=== PATIENT | male | born 1930 | race American Indian/Alaskan Native ===

== ENCOUNTER 2016-03-29 15:52 | Emergency (ER) | payer MEDICARE ==
--- NOTE | 2016-03-29 17:06 | Emergency Department Report ---
Stated Complaint: CLOT AT CATH SITE Time Seen by Provider: 03/29/16 16:55 - HPI History of Present Illness: Patient here reports that he had dialysis PermCath placed in his right groin today. He said they sent him to the emergency room because they saw clot at the insertion site. They also gave him I will Alvarez to be started on. Patient is complaining or right knee pain and swelling since this morning. Denies any fever or chills. Denies any shortness of breath or chest pain. Pain to right knee is 5 out of 10. Patient had dialysis today. - ROS Review of Systems: All systems are negative unless stated in HPI above. - Exam Vital Signs: Vital Signs 03/29/16 16:48 Temperature 98.6 F Pulse Rate 96 H Respiratory 17 Rate Blood Pressure 122/56 O2 Sat by Pulse 99 Oximetry Physical Exam: All systems are negative unless stated in HPI above. MSE screening note: Focused history and physical exam performed. Due to findings the following was ordered: See MDM ED Medical Decision Making - Medical Decision Making Medical decision making: Patient seen by provider in triage area. Appropriate protocol activated and patient to main ED to be seen by physician. ED Disposition for MSE Condition: Stable
[2016-03-29 18:34] LABS: Basophils % (Auto) 1.2 % (0.0-1.8); Eosinophils % (Auto) 1.1 % (0.0-4.3); Hematocrit 37.2 % (35.5-45.6); Hemoglobin 11.6 gm/dl (11.8-15.2); Mean Corpuscular HGB Conc 31 % (32-34); Mean Corpuscular Hemoglobin 31 pg (28-32); Mean Corpuscular Volume 100 fl (84-94); Platelet Count 396 K/mm3 (140-440); Red Blood Count 3.73 M/mm3 (3.65-5.03); White Blood Count 11.8 K/mm3 (4.5-11.0)
[2016-03-29 18:36] LABS: Red Cell Distribution Width 22.1 % (13.2-15.2)
[2016-03-29 18:43] LABS: INR 1.03 (0.87-1.13)
[2016-03-29 18:44] LABS: Partial Thromboplastin Time 33.9 Sec. (24.2-36.6)
[2016-03-29 19:00] LABS: Albumin 3.8 g/dL (3.9-5); BUN/Creatinine Ratio 3.27; Bilirubin,Total 0.4 mg/dL (0.1-1.2); Calcium 8.3 mg/dL (8.4-10.2); Chloride 95.6 mmol/L (98-107); Total Protein 7.7 g/dL (6.3-8.2)
[2016-03-29] MEDS ORDERED: CLEOCIN PO ONE (23:35)
[2016-03-29] MEDS ORDERED: DELTASONE PO ONE (23:35)
--- NOTE | 2016-03-29 23:43 | Emergency Department Report ---
HPI - General Chief Complaint: Extremity Injury, Lower Time Seen by Provider: 03/29/16 16:55 - HPI HPI: The patient is a 85-year-old male with a history of end-stage renal disease, who presents for evaluation of right knee pain. The patient reports one night of mild pain to the right knee, aching quality, exacerbated with movement of the right knee, and improved with rest. He reports associated swelling of the right knee as well. He shares that he has a history of gout. He denies fever, chills, night sweats, ill feeling, parasthesia, motor deficit, trauma to the right knee, knee pain with bearing weight. He also shares that he was instructed to present to the ED by the MOBILITY MANAGER at his dialysis clinic for evaluation of blood clot, despite being able to receive dialysis earlier today. ED Past Medical Hx - Past Medical History Hx Hypertension: Yes (CHF EF 10% from echo 12/30) Hx Congestive Heart Failure: Yes Hx Renal Disease: Yes (CKD) Additional medical history: gout - Surgical History Additional Surgical History: hernia repair - Social History Smoking Status: Never Smoker Substance Use Type: Alcohol - Medications Home Medications: Home Medications Medication Instructions Recorded Confirmed Last Taken Type Aspirin [Aspirin BABY CHEW TAB] 81 mg PO QDAY 12/26/12 12/26/12 12/25/12 09:00 History Cholecalciferol (Vitamin D3) 2,000 unit PO QDAY 12/26/12 12/26/12 12/25/12 09: 00 History [Vitamin D3] Ferrous Sulfate [Feosol] 325 mg PO QDAY 12/26/12 12/26/12 12/25/12 09:00 History Megestrol Acetate [Megace Es] 5 ml PO QDAY 12/26/12 12/26/12 12/24/12 08:00 History Tamsulosin [Flomax] 0.4 mg PO QDAY 12/26/12 12/26/12 12/25/12 09:00 History Carvedilol [Coreg] 3.125 mg PO BID 30 Days 01/05/13 Unknown Rx Digoxin [Lanoxin] 0.125 mg PO QOD #20 tablet 01/05/13 Unknown Rx Prednisone [predniSONE 10 mg 10 mg PO .TAPER #1 tab.ds.pk 03/30/16 Unknown Rx (6-Day Pack, 21 Tabs)] ED Review of Systems ROS: Stated complaint: CLOT AT CATH SITE Other details as noted in HPI Constitutional: denies: fever ENT: denies: throat or neck pain Respiratory: denies: cough, shortness of breath Cardiovascular: denies: chest pain Endocrine: denies unexplained weight loss or gain Gastrointestinal: denies: abdominal pain, nausea Genitourinary: denies: dysuria Musculoskeletal: right leg pain Skin: denies: rash Neurological: denies: headache Hematological/Lymphatic: denies: easy bleeding or easy bruising Psych: denies sadness or hopelessness Physical Exam - Physical Exam Vital Signs: Vital Signs 03/29/16 03/29/16 03/29/16 16:48 23:06 23:07 Temperature 98.6 F Pulse Rate 96 H Respiratory 17 Rate Blood Pressure 122/56 O2 Sat by Pulse 99 96 97 Oximetry 03/29/16 03/29/16 03/29/16 23:09 23:11 23:13 Temperature Pulse Rate 81 79 81 Respiratory 16 15 15 Rate Blood Pressure O2 Sat by Pulse 96 96 97 Oximetry 03/29/16 03/29/16 03/29/16 23:15 23:17 23:18 Temperature Pulse Rate 80 84 83 Respiratory 13 14 16 Rate Blood Pressure 136/72 O2 Sat by Pulse 96 96 96 Oximetry 03/29/16 03/29/16 03/29/16 23:19 23:21 23:23 Temperature Pulse Rate 82 79 79 Respiratory 21 18 14 Rate Blood Pressure 136/72 136/72 136/72 O2 Sat by Pulse 96 95 97 Oximetry 03/29/16 03/29/16 23:25 23:27 Temperature Pulse Rate 87 79 Respiratory 21 17 Rate Blood Pressure 136/72 136/72 O2 Sat by Pulse 98 94 Oximetry Physical Exam: General: well-nourished, well-developed Head: Normocephalic, atraumatic Eyes: normal sclera Respiratory: Breath sounds equal bilaterally, no wheezing, rales, or rhonchi Cardio: S1 and S2 present, no murmurs, rubs, gallops, capillary refill is brisk Abdomen: Normoactive bowel sounds, soft abdomen, no tenderness Musc: mild redness and swelling to the right knee present, no fluctuance or warmth to the knee or surrounding knee, full passive and active range of motion intact, there is no pain with passive range of motion or active range of motion to the right knee, there is no pain with weightbearing on the right knee, quadriceps extensor tendon function intact, minimal tenderness to palpation present to the rt knee, Paula's and posterior drawer signs are negative, no LCL or MCL laxity, rt eg compartments are soft and pliable, no ecchymosis or swelling in the right leg, no signs of DVT or compartment syndrome, sensation and motor function intact, distal pulses intact. Skin: No rash Neuro: no facial drooping, normal speech Psych: Normal affect ED Course Vital Signs 03/29/16 03/29/16 03/29/16 16:48 23:06 23:07 Temperature 98.6 F Pulse Rate 96 H Respiratory 17 Rate Blood Pressure 122/56 O2 Sat by Pulse 99 96 97 Oximetry 03/29/16 03/29/16 03/29/16 23:09 23:11 23:13 Temperature Pulse Rate 81 79 81 Respiratory 16 15 15 Rate Blood Pressure O2 Sat by Pulse 96 96 97 Oximetry 03/29/16 03/29/16 03/29/16 23:15 23:17 23:18 Temperature Pulse Rate 80 84 83 Respiratory 13 14 16 Rate Blood Pressure 136/72 O2 Sat by Pulse 96 96 96 Oximetry 03/29/16 03/29/16 03/29/16 23:19 23:21 23:23 Temperature Pulse Rate 82 79 79 Respiratory 21 18 14 Rate Blood Pressure 136/72 136/72 136/72 O2 Sat by Pulse 96 95 97 Oximetry 03/29/16 03/29/16 23:25 23:27 Temperature Pulse Rate 87 79 Respiratory 21 17 Rate Blood Pressure 136/72 136/72 O2 Sat by Pulse 98 94 Oximetry ED Medical Decision Making - Lab Data Result diagrams: 03/29/16 18:18 03/29/16 18:18 - Medical Decision Making The patient was seen and examined by myself. The patient is placed on a conveyor monitor and continuous pulse ox. On initial evaluation, the patient was found to be in no distress. Evaluation orders were placed. Exam findings are consistent with acute gout arthritis of the right knee. The patient is given a tablet of prednisone for treatment of gout. As the patient is afebrile, with minimal right knee pain, and no pain with range of motion the right knee or weightbearing, evaluation findings are not concerning for septic arthritis. Ultrasound of the right lower extremity is negative for DVT. The patient was reevaluated and reported that their symptoms were markedly improved. The patient is stable for discharge with outpatient follow-up. The patient is given follow-up and return instructions. The patient expressed understanding and agreed with the plan. The patient is discharged in stable condition. Critical care attestation.: If time is entered above; I have spent that time in minutes in the direct care of this critically ill patient, excluding procedure time. ED Disposition Clinical Impression: ESRD (end stage renal disease) Gout of right knee Qualifiers: Gout etiology: due to renal impairment Chronicity: acute Qualified Code(s): M10.361 - Gout due to renal impairment, right knee Disposition: DISCHARGED TO HOME OR SELFCARE Is pt being admited?: No Does the pt Need Aspirin: No Condition: Stable Instructions: Chronic Kidney Disease (ED), Acute Gouty Arthritis (ED) Prescriptions: Prednisone [predniSONE 10 mg (6-Day Pack, 21 Tabs)] 10 mg PO .TAPER #1 tab.ds.pk Referrals: SANTIAGO BASILIO MD [Primary Care Provider] - 3-5 Days Time of Disposition: 23:38
[2016-03-30 00:44] VITALS: BP 131/53
--- NOTE | 2016-04-01 11:34 | Vascular Lab Report ---
Right Lower Extremity Venous Duplex Study: Reason for Exam: Right groin permacath. Comments on the Right: All veins visualized are freely compressible without evidence of internal echogenicity. Flow is spontaneous and phasic throughout. No evidence of acute or chronic thrombus is seen in any of the vessels visualized. The common femoral vein is compressible over the permacath. Comments on the Left: A limited duplex study was done of the proximal veins of the left lower extremity. All veins visualized are freely compressible without evidence of internal echogenicity. Flow is spontaneous and phasic throughout. No evidence of acute or chronic thrombus is seen in any of the vessels visualized. Impression: No evidence of acute or chronic deep venous thrombosis in the right lower extremity.
== END 2016-03-30 01:00 | disposition home or self-care (01) ==
LOC: ED 15:52
DX: M10.361 Gout due to renal impairment, right knee (principal); I12.0 Hypertensive chronic kidney disease with stage 5 chronic kidney disease or end stage renal disease; N18.6 End stage renal disease; I50.9 Heart failure, unspecified
CPT/HCPCS: 36415; 80053; 84550; 85025; 85610; 85730; 93971; 99284; J7512

== ENCOUNTER 2016-04-15 07:43 | Day surgery (SDC) | payer MEDICARE ==
[~2016-04-15 07:43] MED LIST: ANCEF/STERILE WATER 2 GM/20 ML 2 GM/20 ML SYRINGE IV NR; NACL 0.9% 1000 ML 1,000 ML IV SCH
[2016-04-15] MEDS ORDERED: NACL BACTERIOSTATIC INFILTRATI ONE (09:07)
--- NOTE | 2016-04-15 09:08 | Anesthesia Day of Surgery ---
Anesthesia Day of Surgery - Day of Surgery Patient Examined: Yes Patient H&P Reviewed: Yes Patient is NPO: Yes
--- NOTE | 2016-04-15 09:08 | Anesthesia Consultation ---
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
[2016-04-15] MEDS ORDERED: PERCOCET 5/325 PO PRN (09:09)
[2016-04-15] MEDS ORDERED: ZOFRAN IV PRN (09:09)
[2016-04-15 09:45] LABS: Basophils % (Auto) 0.9 % (0.0-1.8); Eosinophils % (Auto) 5.1 % (0.0-4.3); Mean Corpuscular HGB Conc 31 % (32-34); Mean Corpuscular Hemoglobin 32 pg (28-32); Mean Corpuscular Volume 103 fl (84-94); Platelet Count 208 K/mm3 (140-440); Red Blood Count 4.01 M/mm3 (3.65-5.03); White Blood Count 9.1 K/mm3 (4.5-11.0)
[2016-04-15 09:46] LABS: Hematocrit 41.4 % (35.5-45.6); Hemoglobin 12.7 gm/dl (11.8-15.2); Red Cell Distribution Width 20.6 % (13.2-15.2)
[2016-04-15] MEDS ORDERED: NORMODYNE IV NR ×2 (09:57→11:00)
[2016-04-15] MEDS ORDERED: PEPCID IV NR (10:00)
[2016-04-15] MEDS ORDERED: NACL 0.9% 1000 ML 1,000 ML IV SCH (10:00)
[2016-04-15] MEDS ORDERED: DIPRIVAN 10 MG/ML IV ONE (10:03)
[2016-04-15 10:06] LABS: BUN/Creatinine Ratio 7.26; Calcium 8.2 mg/dL (8.4-10.2)
[2016-04-15] MEDS ORDERED: NACL ONE (10:30)
[2016-04-15] MEDS ORDERED: DILAUDID ONE (10:38)
[2016-04-15] MEDS ORDERED: NEO SYNEPHRINE ONE ×2 (11:16→11:17)
[2016-04-15] MEDS ORDERED: XYLOCAINE MPF 2% ONE (11:16)
[2016-04-15] MEDS ORDERED: NEO SYNEPHRINE/NS Syringe(OR USE) IV ONE (11:16)
[2016-04-15] MEDS ORDERED: NACL 0.9% 100 ML ONE (11:17)
[2016-04-15] MEDS ORDERED: ZOFRAN ONE (12:10)
--- NOTE | 2016-04-15 12:19 | Short Stay Summary ---
Short Stay Documentation Date of service: 04/15/16 Narrative H&P: See H&P - History H&P: obtained from office - Allergies and Medications Current Medications: Allergies No Known Allergies Allergy (Verified 03/29/16 16:48) Home Medications Medication Instructions Recorded Confirmed Last Taken Type Aspirin [Aspirin BABY CHEW TAB] 81 mg PO QDAY 12/26/12 04/11/16 04/14/16 History Cholecalciferol (Vitamin D3) 2,000 unit PO QDAY 12/26/12 04/11/16 04/14/16 History [Vitamin D3] Tamsulosin [Flomax] 0.4 mg PO QDAY 12/26/12 04/11/16 04/14/16 History Carvedilol [Coreg] 3.125 mg PO BID 30 Days 01/05/13 04/11/16 04/14/16 Rx Digoxin [Lanoxin] 0.125 mg PO QOD #20 tablet 01/05/13 04/11/16 04/14/16 Rx Amlodipine Besylate [Amlodipine 10 mg PO QDAY 04/11/16 04/11/16 04/14/16 History Besylate] Active Medications Famotidine (Pepcid) 20 mg IV PREOP NR Stop: 04/15/16 23:59 Last Admin: 04/15/16 09:44 Dose: 20 mg Hydromorphone HCl (Dilaudid) 0.25 mg IV Q10MIN PRN PRN Reason: Pain, Moderate (4-6) Stop: 04/15/16 18:00 Cefazolin Sodium (Ancef/Sterile Water 2 Gm/20 Ml) 2 gm in 20 mls @ 80 mls/hr IV PREOP NR PRN Reason: Protocol Stop: 04/15/16 23:59 Sodium Chloride (Nacl 0.9% 1000 Ml) 1,000 mls @ 42 mls/hr IV DIRECT JAZZ Last Admin: 04/15/16 09:41 Dose: 42 mls/hr Sodium Chloride (Nacl 0.9% 1000 Ml) 1,000 mls @ 75 mls/hr IV DIRECT JAZZ Labetalol HCl (Normodyne) 5 mg IV ONCE NR Stop: 04/15/16 15:00 Last Admin: 04/15/16 10:10 Dose: 5 mg Ondansetron HCl (Zofran) 4 mg IV ONCE PRN PRN Reason: Nausea And Vomiting Stop: 04/15/16 23:59 Oxycodone/Acetaminophen (Percocet 5/325) 1 tab PO ONCE PRN PRN Reason: Pain, Moderate (4-6) Stop: 04/15/16 23:59 - Brief post op/procedure progress note Date of procedure: 04/15/16 Pre-op diagnosis: complications of dialysis access Post-op diagnosis: same Procedure: 1. Creation of right brachiocephalic arteriovenous fistula 2. Exchange of right femoral permacath to 55 cm palindrome permacath over wire 3. Radiologic supervision with interpretation Anesthesia: EV Surgeon: NISA WU Estimated blood loss: minimal Pathology: list (right femoral permacath) Specimen disposition: discarded - Disposition Condition at discharge: Good Disposition: DISCHARGED TO HOME OR SELFCARE Short Stay Discharge Plan Activity: other (no heavy lifting with right arm) Wound: open to air, keep clean and dry, other (okay to wash the wound with soap and water but do not soak in water) Follow up with: ELLEN COFFEY DO [Primary Care Provider] - 7 Days Prescriptions: HYDROcodone/APAP 7.5-325 [[place] 7.5/325] 1 each PO Q6HR PRN #50 tablet PRN Reason: Pain
[2016-04-15] MEDS: DILAUDID IV PRN ×2 (12:55→13:15)
--- NOTE | 2016-04-15 12:55 | Post Anesthesia Evaluation ---
- Post Anesthesia Evaluation Patient Participated: Yes Airway Patent: Yes Stable Respiratory Function: Yes Temp > 96.8F: Yes Pain Manageable: Yes Adequeate Hydration: Yes Anesthesia Complications: No Block Receding Appropriately: Not Applicable
[2016-04-15] MEDS ORDERED: NORCO 7.5/325 PO PRN (15:18)
--- NOTE | 2016-04-15 15:19 | Operative Report ---
Operative Report Operative Report: Date of procedure: 04/15/2016 Pre-operative diagnosis: End-Stage Renal Disease Post-operative diagnosis: End-Stage Renal Disease Procedure(s): 1. Creation of Right Brachial Artery to Cephalic Vein Arteriovenous Fistula 2. Exchange of Right Femoral Permacath to 55 cm Palindrome Permacath Over Wire 3. Radiologic Supervision and Interpretation Surgeon: Ras Banks MD Nanotechnologist: None Anesthesia: Gen. endotracheal anesthesia EBL: Minimal Counts: Correct Complications: None Condition: Stable Findings: Successful right femoral permacath exchange with tip at the cavoatrial junction and both ports easily aspirated and flushed. Right AV fistula with excellent thrill and palpable radial pulse than the case. Specimen: Right femoral permacath discarded. Indications: The patient is 85-year-old male with history of end-stage renal disease currently on hemodialysis door right femoral permacath. He is in need of long- term access. Additionally he has had complications with his current permacath. He is in need of creation of long-term access as well as exchange of the permacath. He was given the risks, benefits, and alternative procedures and consented to procedure. Description of Procedure: The patient was brought to the operating room and laid in supine position. After general endotracheal anesthesia was achieved his indwelling right femoral permacath was prepped and draped in normal sterile fashion. Additionally his right groin and thigh were prepped and draped in normal sterile fashion. A 0.035 J-wire was advanced through the catheter into the central venous system under fluoroscopy. The cuff was dissected from the surrounding tissue to the exit site and the catheter was removed leaving the wire in place. A counter incision was then created in the groin and the wire was grasped and pulled through the incision. The peel-away safety sheath was then advanced over the wire and the inner dilator and wire removed. An exit site on the thigh was then chosen a small stab incision was made and the catheter was connected to the tunneler and tunneled from the exit site to the entry site in the groin. The tunnel was removed and the catheter was inserted into the peel-away safety sheath. Safety sheath was peeled away and the catheter was further advanced with the tip at the cavoatrial junction. Both ports were then aspirated and flushed and upon with the appropriate amount of heparin. The groin incision was closed in 2 layers using a 3-0 Vicryl running fashion and a deep dermal layer and a 4 Monocryl in a running fashion subcuticular and dressed with Dermabond. The catheter was dressed sterilely. At this point a sterile field was broken down and the patient's right arm was prepped and draped in normal sterile fashion. A transverse incision was created just below the antecubital crease. Dissection was carried down to the the cephalic vein using sharp dissection. The vein was dissected out both proximally and distally and suture ligated and divided distally. I then ran a 3 Winston proximally in the vein, to ensure patency of the vein. Then flushed the vein with heparinized saline and flow was controlled with a bulldog clamp. I then dissected out the brachial artery through this incision circumferentially both proximal and distal and controlled the artery with vessel loops. I then placed the vessel loops on tension controlling the flow through the artery and created an arteriotomy using an 11 blade and Vaca scissors. I created an end to side anastomosis between the cephalic vein and brachial artery using a 6-0 Prolene in running fashion. Prior to completing the anastomosis I flushed the artery both proximally and distally and then advanced a 3 Winston proximally to break the spasm in the artery. I then completed the anastomosis and removed all vessel loops allowing flow into the fistula which had an excellent thrill. I achieved hemostasis with a combination of direct pressure and electrocautery. Once hemostasis was achieved I anesthetized the wound with Marcaine. I then closed the wound in 2 layers and 3-0 Vicryl in a running fashion to close the deep dermal layer and 4-0 Monocryl in a running fashion in the subcuticular layer. I dressed the wound with Surgicel. The patient tolerated the procedure well, all sponge needle and instrument counts were correct. The patient was taken to recovery in stable condition.
[2016-04-15 16:05] VITALS: BP 165/64
--- NOTE | 2016-04-15 20:51 | Admit Criteria Form ---
Admission Criteria Documentation: AMBULATORY SURGERY EXCEPTION CRITERIA Ambulatory Surgery Exception Criteria ( Place 'X' for any and all applicable criteria): Surgery or procedure performed on ambulatory basis may require inpatient stay for[A] ANY ONE of the following(1)(2)(3)(4)(5)(6)(7)(8)(9): [X] I. A preoperative situation, condition, or finding that warrants inpatient stay as indicated by ANY ONE of the following: [] a) Inpatient care needed because of severity of a disease or condition rather than the surgery (eg, severe cardiac or respiratory disease, severe infection) (15) (16 ) (17) (18) [] b) Emergent procedure (eg, angioplasty for acute ischemia)(19) [] c) Complex surgical approach or situation as indicated by ANY ONE of the following(3): [] i) Open approach needed instead of usual endoscopic, transcatheter, or other less invasive procedure [] ii) Difficult approach because of previous operation [] iii) Airway monitoring required after open neck procedures(20)(21) [] iv) Large mass requiring unusually extensive dissection [] v) Additional complicating feature requiring inpatient care (eg, drain management)(22(23): [X] d) Major surgery in a pt with high anesthetic risk as indicated by ANY ONE of the following (2)(3)(5)(7)(8): [X] i) ASA risk class III or higher (severe systemic disease impairing function) [D] [] ii) Advanced age (eg, older than 85 years)(14)(24) [] iii) Symptomatic heart failure(25) [] iv) Symptomatic asthma or COPD(8)(21) [] v) Morbid obesity with hemodynamic or respiratory problems(20)( 21)(26)(27) [] vi) Obstructive sleep apnea(20)(21) [] vii) Former premature infants who are younger than 60 weeks [] viii) High risk for severe postoperative abnormalities (eg, severe postoperative hypocalcemia after parathyroidectomy for severe hyperparathyroidism)(27)( 28) [] ix) Unstable angina(25) [] e) Drug-related risk requiring inpatient stay as indicated by ANY ONE of the following(5)(10)(14)(32)(33) [] i) Procedure requires discontinuing drugs or other therapy (eg , antiarrhythmic medication, antiseizure medication), which necessitates inpatient observation or treatment.(18)(31) [] ii) Major surgery and high risk drug use as indicated by ANY ONE of the following: [] 1) Active abuse of cocaine or similar drug [] 2) Monoamine oxidase inhibitor use [] 3) Other drug identified as posing risk [] f) Inadequate outpatient care situation as indicated by ANY ONE of the following(5)(10)(14)(32)(33) [] i) Patient lives remote from medical facility and procedure has urgent complication potential, and temporary nearby residence cannot be arranged [] ii) Patient will have postprocedure incapacitation and inadequate assistance at home, or alternative level of care cannot be arranged. [] iii) Patient will have long general anesthesia or procedure side effect resolution time, and competent person to stay with patient on first postoperative night at home or alternative level of care cannot be arranged. []iv) Other inadequate outpatient situation that cannot be handled by other means [] II. A perioperative event, condition, or finding that warrants inpatient stay as indicated by ANY ONE of the following (1)(2)(3): [] a) Inadequate physiologic recovery: cardiovascular, respiratory, or hemodynamic status not normal or near preoperative baseline(18) [] b) Hemodynamic instability [] c) Patient not alert with near normal or baseline mental status [] d) Temperature not normal or as expected and not appropriate for outpatient treatment of condition [] e) Ambulatory or appropriate activity level status not yet achieved post procedure [E](34)(35)(36) [] f) Operative site not appropriate (eg, unexpected or excessive drainage or bleeding) [] g) Postoperative effects not resolved or adequately managed (eg, significant pain or vomiting not appropriate for outpatient or next level of care)(10)(12) [] h) Complicating features requiring inpatient care as indicated by ANY ONE of the following(37): [] i) Severe complications of procedure (eg, bowel injury, airway compromise, vascular injury,severe hemorrhage) [] ii) Extensive (eg, dissection far beyond usual scope of procedure ) or prolonged (eg, 120 minutes beyond usual) surgery needed requiring inpatient postoperative care [] iii) Conversion to an open or complex procedure that requires inpatient care (eg, open vs laparoscopic cholecystectomy, abdominal vs vaginal hysterectomy)(38) [] iv) Comorbid condition or test result identified during or post procedure that requires inpatient care (7) [] v) Malignant hyperthermia(30) [] vi) Other complicating feature requiring inpatient care(22)(23) Inpatient stay may be needed until ALL of the following are present (1)(2)(3)(4) (5)(6)(10)(14)(33)(40): []a) Physiologic recovery: cardiovascular, respiratory, and hemodynamic status normal or near preoperative baseline []b) Hemodynamic stability []c) Patient alert, with near normal or baseline mental status []d) Temperature appropriate: patient afebrile or temperature appropriate for outpt treatment of condition []e) Activity level appropriate: ambulatory or appropriate activity level post procedure []f) Operative site appropriate as indicated by ALL of the following: []i) Site dry or with expected drainage []ii) Any blood noted is as expected for procedure. []g) Postoperative effects resolved or managed as indicated by ALL of the following: []i) Pain management appropriate for outpatient (or next level of) care(10) []ii) Minimal nausea and vomiting: if present, successfully treated with oral medication(12) []iii) Headache, dizziness, or drowsiness (if present) are mild. []h) Voiding status acceptable as indicated by ANY ONE of the following: []i) Voiding spontaneously []ii) No voiding but instructions given for follow-up in 6 to 8 hours []iii) Urinary catheter in place, and instructions given for follow-up []i) Complicating features requiring inpatient care manageable at a lower level of care(37) []j) Comorbid conditions manageable at a lower level of care(37) The original [employer] content created by [employer] has been revised. The portions of the content which have been revised are identified through the use of italic text or in bold, and [facility] [employer] has neither reviewed nor approved the modified material. All other unmodified content is copyright [employer]. Please see references footnoted in the original [employer] edition 2016 Admission Criteria Met: Yes
== END 2016-04-15 15:42 | disposition home or self-care (01) ==
LOC: OR 07:43
PROVIDERS: ATTEND Surgery Vascular Surgery
DX: I12.0 Hypertensive chronic kidney disease with stage 5 chronic kidney disease or end stage renal disease (principal); N18.6 End stage renal disease; I10 Essential (primary) hypertension; Z87.891 Personal history of nicotine dependence; Z99.2 Dependence on renal dialysis; D64.9 Anemia, unspecified; Z72.89 Other problems related to lifestyle
CPT/HCPCS: 36415; 36561; 36590; 36818; 80048; 85025; J0690; J1170; J2370; J2405; J2704; J7030; C1750; C1757; C1769

== ENCOUNTER 2016-06-25 05:58 | Day surgery (SDC) | payer MEDICARE ==
[2016-06-25] MEDS ORDERED: NACL 0.9% 1000 ML 1,000 ML IV SCH (06:00)
[2016-06-25] MEDS ORDERED: ANCEF/STERILE WATER 2 GM/20 ML 2 GM/20 ML SYRINGE IV NR (06:00)
[2016-06-25] MEDS ORDERED: NACL BACTERIOSTATIC INFILTRATI ONE (06:30)
--- NOTE | 2016-06-25 06:59 | Anesthesia Consultation ---
Anesthesia Consult and Med Hx Date of service: 06/25/16 (Scheduled for creation of right AV Fistula with Dr. Banks) - Airway Anesthetic Teeth Evaluation: Edentulous ROM Head & Neck: Adequate Mental/Hyoid Distance: Adequate Mallampati Class: Class II Intubation Access Assessment: Probably Good - Pulmonary Exam CTA: Yes - Pre-Operative Health Status ASA Pre-Surgery Classification: ASA4 Proposed Anesthetic Plan: General (vs), MAC - Pre-Anesthesia Comment Pre-Anesthesia Comments: No previous anesthesia complications. NPO since midnight. 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 Underwent anesthesia on 04/2016 without complications.
[2016-06-25] MEDS ORDERED: PEPCID PO NR (07:00)
[2016-06-25] MEDS ORDERED: PAPAVERINE ONE (07:16)
[2016-06-25] MEDS ORDERED: PROTAMINE SULFATE ONE (07:16)
[2016-06-25] MEDS ORDERED: NACL 0.9% 1000 ML 1,000 ML ONE (07:17)
[2016-06-25] MEDS ORDERED: FLUSH HEPARIN IV ONE (07:17)
[2016-06-25] MEDS ORDERED: HEPARIN 10,000 UNITS/10 ML ONE (07:17)
[2016-06-25] MEDS ORDERED: MARCAINE 0.25% INFILTRATI ONE ×2 (07:17→07:59)
[2016-06-25] MEDS ORDERED: RIFADIN ONE (07:17)
[2016-06-25] MEDS ORDERED: NACL ONE (07:17)
[2016-06-25] MEDS ORDERED: NACL 0.9% 500 ML 500 ML ONE (07:18)
[2016-06-25] MEDS ORDERED: XYLOCAINE 1%/ EPI 1:100,000 INFILTRATI ONE (07:18)
[2016-06-25] MEDS ORDERED: NACL 0.9% 250ML 250 ML ONE (07:18)
[2016-06-25] MEDS ORDERED: DILAUDID ONE (07:46)
[2016-06-25] MEDS ORDERED: ZOFRAN ONE ×2 (07:46→08:45)
[2016-06-25] MEDS ORDERED: XYLOCAINE MPF 2% ONE (07:46)
[2016-06-25] MEDS ORDERED: DIPRIVAN 10 MG/ML IV ONE (07:46)
[2016-06-25] MEDS ORDERED: FLUSH HEPARIN IV NR (07:53)
[2016-06-25 07:55] LABS: INR 0.96 (0.87-1.13)
[2016-06-25 07:57] LABS: BUN/Creatinine Ratio 5.76; Calcium 8.5 mg/dL (8.4-10.2); Chloride 97.5 mmol/L (98-107); Potassium 4.2 mmol/L (3.6-5.0)
[2016-06-25] MEDS ORDERED: HEPARIN 10,000 UNITS/10 ML IV ONE ×2 (07:59)
[2016-06-25] MEDS ORDERED: NACL 0.9% 1000 ML IR ONE (07:59)
[2016-06-25] MEDS ORDERED: NACL 0.9% IR ONE (07:59)
[2016-06-25] MEDS ORDERED: RIFADIN IV ONE (07:59)
[2016-06-25] MEDS ORDERED: NACL 0.9% 500 ML IV ONE (07:59)
[2016-06-25] MEDS ORDERED: NEO SYNEPHRINE/NS Syringe(OR USE) IV ONE (08:00)
[2016-06-25 08:07] LABS: Basophils % (Auto) 1.3 % (0.0-1.8); Eosinophils % (Auto) 7.4 % (0.0-4.3); Hematocrit 26.8 % (35.5-45.6); Hemoglobin 8.6 gm/dl (11.8-15.2); Mean Corpuscular HGB Conc 32 % (32-34); Mean Corpuscular Hemoglobin 32 pg (28-32); Mean Corpuscular Volume 100 fl (84-94); Platelet Count 202 K/mm3 (140-440); Red Blood Count 2.67 M/mm3 (3.65-5.03); White Blood Count 8.2 K/mm3 (4.5-11.0)
[2016-06-25 08:08] LABS: Red Cell Distribution Width 21.6 % (13.2-15.2)
[2016-06-25] MEDS ORDERED: DILAUDID IV PRN (08:56)
[2016-06-25] MEDS ORDERED: ZOFRAN IV PRN (08:56)
--- NOTE | 2016-06-25 08:56 | Anesthesia Day of Surgery ---
Anesthesia Day of Surgery - Day of Surgery Patient Examined: Yes Patient H&P Reviewed: Yes Patient is NPO: Yes Beta Blockers: Yes
--- NOTE | 2016-06-25 09:30 | Short Stay Summary ---
Short Stay Documentation Date of service: 06/25/16 Narrative H&P: See H&P - History H&P: obtained from office - Allergies and Medications Current Medications: Allergies No Known Allergies Allergy (Verified 03/29/16 16:48) Home Medications Medication Instructions Recorded Confirmed Last Taken Type Aspirin [Aspirin BABY CHEW TAB] 81 mg PO QDAY 12/26/12 06/25/16 06/24/16 History Cholecalciferol (Vitamin D3) 2,000 unit PO QDAY 12/26/12 06/25/16 06/24/16 History [Vitamin D3] Tamsulosin [Flomax] 0.4 mg PO QDAY 12/26/12 06/25/16 06/24/16 History Carvedilol [Coreg] 3.125 mg PO BID 30 Days 01/05/13 06/25/16 06/24/16 Rx Digoxin [Lanoxin] 0.125 mg PO QOD #20 tablet 01/05/13 06/25/16 06/24/16 Rx Amlodipine Besylate 10 mg PO QDAY 04/11/16 06/25/16 06/24/16 History HYDROcodone/APAP 7.5-325 [[place] 1 each PO Q6HR PRN #50 tablet 04/15/16 06/20/16 Unknown Rx 7.5/325] Active Medications Heparin Sodium (Porcine) (Flush Heparin) 500 unit IV ONCE NR Stop: 06/25/16 15:00 Hydromorphone HCl (Dilaudid) 0.25 mg IV Q10MIN PRN PRN Reason: Pain, Moderate (4-6) Stop: 06/25/16 16:00 Cefazolin Sodium (Ancef/Sterile Water 2 Gm/20 Ml) 2 gm in 20 mls @ 80 mls/hr IV PREOP NR PRN Reason: Protocol Stop: 06/25/16 23:59 Sodium Chloride (Nacl 0.9% 1000 Ml) 1,000 mls @ 42 mls/hr IV DIRECT JAZZ Last Admin: 06/25/16 07:25 Dose: 42 mls/hr Ondansetron HCl (Zofran) 4 mg IV ONCE PRN PRN Reason: Nausea And Vomiting Stop: 06/25/16 16:00 - Brief post op/procedure progress note Date of procedure: 06/25/16 Pre-op diagnosis: Complications of Dialysis Access Post-op diagnosis: same Procedure: Revision of Right AVF with Interposition 5 mm Bovine Graft Anesthesia: EV Surgeon: NISA WU Estimated blood loss: minimal Pathology: none Condition: stable - Disposition Condition at discharge: Good Disposition: DISCHARGED TO HOME OR SELFCARE Short Stay Discharge Plan Activity: other (No heavy Lifting Left Arm) Wound: open to air, keep clean and dry, other (Okay to wash the wound with soap and water but do not soak in water) Follow up with: NISA WU MD [Staff Physician] - 14 Days Prescriptions: HYDROcodone/APAP 7.5-325 [[place] 7.5/325] 1 each PO Q6HR PRN #50 tablet PRN Reason: Pain
--- NOTE | 2016-06-25 09:40 | Operative Report ---
Operative Report Operative Report: Date of procedure: 06/25/2016 Pre-operative diagnosis: Complications of Dialysis Access Post-operative diagnosis: Same Procedure(s): 1. Revision of Right AVF with Interposition 5 mm Bovine Graft Surgeon: Ras Banks MD Computer Engineer: None Anesthesia: General Endotracheal Anesthesia EBL: Minimal Counts: Correct Complications: None Condition: Stable Findings: Successful revision of right AVF with interposition AVG Specimen: None Indication: The patient is an 86 year old male with ESRD who had creation of a right arm AVF. The cephalic vein was initially the fistula with most robust thrill however this thrombosed in the basilic vein remained patent as a fistula. I felt that at his age he would not benefit from elevation of the fistula, requiring a large incision, so I offered revision of the fistula with an interposition graft. He was given the risks, benefits, alternative procedures and consented to the procedure. Description of Procedure: The patient was brought to the operating room and laid in supine position after general endotracheal anesthesia was achieved the left arm was prepped and draped in normal sterile fashion. An oblique incision was made over the fistula proximal to the antecubital crease. The fistula was dissected out circumferentially both proximally and distally and controlled with vessel loops. A second incision was created in longitudinal fashion on the medial aspect of the arm just distal to the axillary crease and carried down to the axillary vein using sharp dissection. Axillary vein was dissected out circumferentially and controlled with a vessel loop. I then used a Letty-Wick tunneler to tunnel from the brachial artery incision to the axillary vein incision and then put an 5 mm bovine through the tunnel. I infused with heparinized saline to ensure that it was not twisted or kinked. The inflow of the fistula was divided distally and the remaining portion was spliced. I beveled the graft and created an end-to-end anastomosis using two 6-0 Prolenes in running fashion. I clamped the graft just proximal to the anastomosis. I placed quick clot in incision to achieve hemostasis. I cut the proximal end of the graft to the appropriate length and beveled the graft in preparation for a venous anastomosis. I controlled the axillary vein a Satinsky clamp and created a venotomy using an 11 blade and Vaca scissors. I created an end to side anastomosis using a 6-0 Prolene in running fashion. Prior to completing the anastomosis I flushed the graft to ensure there was no thrombus and then completed the anastamosis. I released all clamps allowing flow into the AV graft which had an excellent thrill. I packed the wound with quick clot to achieve hemostasis. I anesthetized both wounds with Marcaine and then closed both wounds in 2 layers using 3-0 Vicryl in running fashion in the deep dermal layer and 4-0 Monocryl in running fashion the subcuticular layer. I dressed both wounds with Surgicel. The patient tolerated the procedure well all sponge needle and instrument counts were correct the patient was taken to recovery in stable condition.
--- NOTE | 2016-06-25 09:53 | Post Anesthesia Evaluation ---
- Post Anesthesia Evaluation Patient Participated: Yes Airway Patent: Yes Stable Respiratory Function: Yes Nausea/Vomiting: No Temp > 96.8F: Yes Pain Manageable: Yes Adequeate Hydration: Yes Anesthesia Complications: No Block Receding Appropriately: Not Applicable Patient on Ventilator: No
[2016-06-25] MEDS ORDERED: NORCO 7.5/325 PO PRN (10:24)
[2016-06-25 10:39] VITALS: BP 128/71
[2016-06-25] MEDS ORDERED: PERCOCET 5/325 PO PRN (11:00)
--- NOTE | 2016-06-25 23:51 | Admit Criteria Form ---
Admission Criteria Documentation: AMBULATORY SURGERY EXCEPTION CRITERIA Ambulatory Surgery Exception Criteria ( Place 'X' for any and all applicable criteria): Surgery or procedure performed on ambulatory basis may require inpatient stay for[A] ANY ONE of the following(1)(2)(3)(4)(5)(6)(7)(8)(9): [X] I. A preoperative situation, condition, or finding that warrants inpatient stay as indicated by ANY ONE of the following: [] a) Inpatient care needed because of severity of a disease or condition rather than the surgery (eg, severe cardiac or respiratory disease, severe infection) (15) (16 ) (17) (18) [] b) Emergent procedure (eg, angioplasty for acute ischemia)(19) [] c) Complex surgical approach or situation as indicated by ANY ONE of the following(3): [] i) Open approach needed instead of usual endoscopic, transcatheter, or other less invasive procedure [] ii) Difficult approach because of previous operation [] iii) Airway monitoring required after open neck procedures(20)(21) [] iv) Large mass requiring unusually extensive dissection [] v) Additional complicating feature requiring inpatient care (eg, drain management)(22(23): [X] d) Major surgery in a pt with high anesthetic risk as indicated by ANY ONE of the following (2)(3)(5)(7)(8): [X] i) ASA risk class III or higher (severe systemic disease impairing function) [D] [] ii) Advanced age (eg, older than 85 years)(14)(24) [] iii) Symptomatic heart failure(25) [] iv) Symptomatic asthma or COPD(8)(21) [] v) Morbid obesity with hemodynamic or respiratory problems(20)( 21)(26)(27) [] vi) Obstructive sleep apnea(20)(21) [] vii) Former premature infants who are younger than 60 weeks [] viii) High risk for severe postoperative abnormalities (eg, severe postoperative hypocalcemia after parathyroidectomy for severe hyperparathyroidism)(27)( 28) [] ix) Unstable angina(25) [] e) Drug-related risk requiring inpatient stay as indicated by ANY ONE of the following(5)(10)(14)(32)(33) [] i) Procedure requires discontinuing drugs or other therapy (eg , antiarrhythmic medication, antiseizure medication), which necessitates inpatient observation or treatment.(18)(31) [] ii) Major surgery and high risk drug use as indicated by ANY ONE of the following: [] 1) Active abuse of cocaine or similar drug [] 2) Monoamine oxidase inhibitor use [] 3) Other drug identified as posing risk [] f) Inadequate outpatient care situation as indicated by ANY ONE of the following(5)(10)(14)(32)(33) [] i) Patient lives remote from medical facility and procedure has urgent complication potential, and temporary nearby residence cannot be arranged [] ii) Patient will have postprocedure incapacitation and inadequate assistance at home, or alternative level of care cannot be arranged. [] iii) Patient will have long general anesthesia or procedure side effect resolution time, and competent person to stay with patient on first postoperative night at home or alternative level of care cannot be arranged. []iv) Other inadequate outpatient situation that cannot be handled by other means [] II. A perioperative event, condition, or finding that warrants inpatient stay as indicated by ANY ONE of the following (1)(2)(3): [] a) Inadequate physiologic recovery: cardiovascular, respiratory, or hemodynamic status not normal or near preoperative baseline(18) [] b) Hemodynamic instability [] c) Patient not alert with near normal or baseline mental status [] d) Temperature not normal or as expected and not appropriate for outpatient treatment of condition [] e) Ambulatory or appropriate activity level status not yet achieved post procedure [E](34)(35)(36) [] f) Operative site not appropriate (eg, unexpected or excessive drainage or bleeding) [] g) Postoperative effects not resolved or adequately managed (eg, significant pain or vomiting not appropriate for outpatient or next level of care)(10)(12) [] h) Complicating features requiring inpatient care as indicated by ANY ONE of the following(37): [] i) Severe complications of procedure (eg, bowel injury, airway compromise, vascular injury,severe hemorrhage) [] ii) Extensive (eg, dissection far beyond usual scope of procedure ) or prolonged (eg, 120 minutes beyond usual) surgery needed requiring inpatient postoperative care [] iii) Conversion to an open or complex procedure that requires inpatient care (eg, open vs laparoscopic cholecystectomy, abdominal vs vaginal hysterectomy)(38) [] iv) Comorbid condition or test result identified during or post procedure that requires inpatient care (7) [] v) Malignant hyperthermia(30) [] vi) Other complicating feature requiring inpatient care(22)(23) Inpatient stay may be needed until ALL of the following are present (1)(2)(3)(4) (5)(6)(10)(14)(33)(40): []a) Physiologic recovery: cardiovascular, respiratory, and hemodynamic status normal or near preoperative baseline []b) Hemodynamic stability []c) Patient alert, with near normal or baseline mental status []d) Temperature appropriate: patient afebrile or temperature appropriate for outpt treatment of condition []e) Activity level appropriate: ambulatory or appropriate activity level post procedure []f) Operative site appropriate as indicated by ALL of the following: []i) Site dry or with expected drainage []ii) Any blood noted is as expected for procedure. []g) Postoperative effects resolved or managed as indicated by ALL of the following: []i) Pain management appropriate for outpatient (or next level of) care(10) []ii) Minimal nausea and vomiting: if present, successfully treated with oral medication(12) []iii) Headache, dizziness, or drowsiness (if present) are mild. []h) Voiding status acceptable as indicated by ANY ONE of the following: []i) Voiding spontaneously []ii) No voiding but instructions given for follow-up in 6 to 8 hours []iii) Urinary catheter in place, and instructions given for follow-up []i) Complicating features requiring inpatient care manageable at a lower level of care(37) []j) Comorbid conditions manageable at a lower level of care(37) The original [employer] content created by [employer] has been revised. The portions of the content which have been revised are identified through the use of italic text or in bold, and [facility] [employer] has neither reviewed nor approved the modified material. All other unmodified content is copyright [employer]. Please see references footnoted in the original [employer] edition 2016 Admission Criteria Met: Yes
== END 2016-06-25 11:07 | disposition home or self-care (01) ==
LOC: OR 05:58
PROVIDERS: ATTEND Surgery Vascular Surgery
DX: T82.868A Thrombosis due to vascular prosthetic devices, implants and grafts, initial encounter (principal); I12.0 Hypertensive chronic kidney disease with stage 5 chronic kidney disease or end stage renal disease; N18.6 End stage renal disease; D64.9 Anemia, unspecified; Z99.2 Dependence on renal dialysis; Z98.890 Other specified postprocedural states; Z79.899 Other long term (current) drug therapy; Z72.89 Other problems related to lifestyle; Z87.891 Personal history of nicotine dependence; Z83.3 Family history of diabetes mellitus; Y83.2 Surgical operation with anastomosis, bypass or graft as the cause of abnormal reaction of the patient, or of later complication, without mention of misadventure at the time of the procedure
CPT/HCPCS: 36415; 36832; 80048; 85025; 85610; J0690; J1170; J1642; J1644; J2405; J2704; J3490; J7030; J7040; J7050; C1768; J2370; J2440; J2720

== ENCOUNTER 2017-09-19 10:56 | Day surgery (SDC) | payer MEDICARE ==
[2017-09-19] MEDS ORDERED: XYLOCAINE MPF 2% ONE (11:30)
--- NOTE | 2017-09-19 12:05 | Anesthesia Day of Surgery ---
Anesthesia Day of Surgery - Day of Surgery Patient Examined: Yes Patient H&P Reviewed: Yes Patient is NPO: Yes Beta Blockers: No Cardiac Clearance: No Pulmonary Clearance: No
--- NOTE | 2017-09-19 12:05 | Anesthesia Consultation ---
Anesthesia Consult and Med Hx Date of service: 09/19/17 - Airway Anesthetic Teeth Evaluation: Good ROM Head & Neck: Adequate Mallampati Class: Class III Intubation Access Assessment: Possibly Difficult - Cardiac Exam Cardiac Exam: RRR - Pre-Operative Health Status ASA Pre-Surgery Classification: ASA4 Proposed Anesthetic Plan: General, MAC - Pre-Anesthesia Comment Pre-Anesthesia Comments: decrease range of motion neck/ just had dialysis this am,npo post midnight - Pulmonary Hx Smoking: Yes (smoked for 25 years, quit 40 years ago) Hx Asthma: No Hx Respiratory Symptoms: Yes (dypsnea, on nasal O2) - Cardiovascular System Hx Hypertension: Yes (SINCE ) Hx Valvular Heart Disease: Yes ( severe MR and mild to mod TR per echo 2012) - Central Nervous System CVA: No Hx Psychiatric Problems: No - Endocrine Hx Renal Disease: Yes (ESRD) Hx End Stage Renal Disease: Yes Hx Non-Insulin Dependent Diabetes: No Hx Thyroid Disease: No - Hematic Hx Anemia: Yes - Other Systems Hx Alcohol Use: Yes (VODKA DAILY) Hx Cancer: No Hx Obesity: No
[2017-09-19] MEDS ORDERED: MORPHINE IV PRN (12:06)
[2017-09-19] MEDS ORDERED: PROTAMINE SULFATE ONE (12:33)
[2017-09-19] MEDS ORDERED: MARCAINE 0.5% 30 ML INFILTRATI ONE (12:33)
[2017-09-19] MEDS ORDERED: NACL 0.9% 500 ML 500 ML ONE (12:33)
[2017-09-19] MEDS ORDERED: HEPARIN 10,000 UNITS/10 ML ONE (12:33)
[2017-09-19 12:59] LABS: Basophils % (Auto) 0.6 % (0.0-1.8); Eosinophils # (Auto) 0.7 K/mm3 (0.0-0.4); Hematocrit 28.1 % (35.5-45.6); Hemoglobin 9.4 gm/dl (11.8-15.2); Lymphocytes # (Auto) 0.6 K/mm3 (1.2-5.4); Lymphocytes % (Auto) 7.3 % (13.4-35.0); Mean Corpuscular HGB Conc 33 % (32-34); Mean Corpuscular Hemoglobin 31 pg (28-32); Mean Corpuscular Volume 92 fl (84-94); Monocytes # (Auto) 0.8 K/mm3 (0.0-0.8); Monocytes % (Auto) 9.5 % (0.0-7.3); Platelet Count 362 K/mm3 (140-440); Red Blood Count 3.06 M/mm3 (3.65-5.03); Red Cell Distribution Width 16.4 % (13.2-15.2)
[2017-09-19 13:10] LABS: Calcium 8.7 mg/dL (8.4-10.2)
[2017-09-19] MEDS ORDERED: DIPRIVAN 10 MG/ML IV ONE (13:42)
[2017-09-19] MEDS ORDERED: ePHEDrine 50 MG/5 ML-0.9% NACL IV ONE (13:42)
[2017-09-19] MEDS ORDERED: MARCAINE 0.5% INFILTRATI ONE (14:46)
[2017-09-19] MEDS ORDERED: NACL 0.9% IR ONE (14:46)
[2017-09-19] MEDS ORDERED: HEPARIN 10,000 UNITS/10 ML 2,000 UNIT in NACL 0.9% 500 ML 500 ML IR ONE (14:47)
--- NOTE | 2017-09-19 15:27 | Operative Report ---
Operative Report Operative Report: Operative note: Date: 09/19/2017 Preoperative diagnosis: Right upper extremity hematoma Postoperative diagnosis: Same. Operation: Evacuation of right upper extremity hematoma, drain placement Surgeon: Olivia Willis. Asst.: Jacinto Holcomb Anesthesia: Gen. EBL: 100 mL Findings: Large hematoma in the arm and forearm, AV graft was not exposed Indications: 87-year-old gentleman that had Bleeding during declot that was rescued by stent graft placement subsequently developed significant right upper extremity edema, on the follow-up appointment was noted to have drainage of hematoma as well as tissue necrosis was developed and the necrotic patch. She was scheduled for hematoma evacuation. The patient was explained risks, benefits and alternatives of procedure and signed informed consent. Operative details: Patient was brought to the operating room and placed in supine position. Right arm was placed on extension table, prepped and draped in sterile fashion. There was noted hematoma drainage at the medial portion of mid arm. Timeout was performed and all members in agreement. Using 15 blade I excised necrotic skin patch in the medial arm and send aerobic and anaerobic cultures. Hematoma was evacuated and areas were palpated inside the cavity. There was no exposed AV graft. There was one muscle bleeder that required [id number] silk stitch to control. There was another necrotic patch was fluctuance on the upper forearm medial portion. I excised the patch was 15 blade also an evacuated hematoma that side. There was no graft or anastomosis expose the palpable there also. Hemostasis was achieved with electrocautery. Fibrillar was placed on the wound base. Wound edges were approximated in the forearm was 3-year-old Prolene stitch in the running fashion. There was [id number] and interrupted mattresses in the arm incision. Manny drain was placed throughout hematoma area. Sterile dressing including fluff gauze, ABD pads and Kerlix roll as well as Srinath wrap were placed Patient tolerated the procedure well. Was transferred to PACU in stable condition.
--- NOTE | 2017-09-19 15:32 | Short Stay Summary ---
Short Stay Documentation Date of service: 09/19/17 - History H&P: obtained from office - Allergies and Medications Current Medications: Allergies No Known Allergies Allergy (Verified 03/29/16 16:48) Home Medications Medication Instructions Recorded Confirmed Last Taken Type Aspirin [Aspirin BABY CHEW TAB] 81 mg PO QDAY 12/26/12 09/19/17 09/18/17 History Cholecalciferol (Vitamin D3) 2,000 unit PO QDAY 12/26/12 09/19/17 09/18/17 History [Vitamin D3 2,000 unit] Tamsulosin [Flomax] 0.4 mg PO QDAY 12/26/12 09/19/17 09/18/17 History Carvedilol [Coreg] 3.125 mg PO BID 30 Days tablet 01/05/13 09/19/17 09/18/17 Rx Digoxin [Lanoxin] 0.125 mg PO QOD #20 tablet 01/05/13 09/19/17 09/18/17 Rx Amlodipine Besylate 10 mg PO QDAY 04/11/16 09/19/17 09/18/17 History Allopurinol [Zyloprim] 100 mg PO QDAY 09/06/17 09/19/17 09/18/17 History Cyanocobalamin/Folic AC/Vit B6 [B 1 each PO DAILY 09/06/17 09/19/17 09/18/17 History Complex-Folic Acid Tablet] Docusate Sodium [Colace CAP] 100 mg PO BID PRN 09/06/17 09/19/17 09/18/17 History Lidocain2.5%/Prilocai2.5% [Emla] 1 applic TP DAILY PRN 09/06/17 09/19/17 History Megestrol [Megace] 40 mg PO DAILY 09/06/17 09/19/17 09/18/17 History Ramipril 10 mg PO DAILY 09/06/17 09/19/17 09/18/17 History Active Medications Cefazolin Sodium (Ancef/Sterile Water 2 Gm/20 Ml) 2 gm in 20 mls @ 80 mls/hr IV PREOP NR; Protocol Stop: 09/19/17 23:59 Sodium Chloride (Nacl 0.9% 1000 Ml) 1,000 mls @ 42 mls/hr IV DIRECT JAZZ Last Admin: 09/19/17 12:35 Dose: 42 mls/hr Morphine Sulfate (Morphine) 2 mg IV Q10MIN PRN PRN Reason: Pain, Moderate (4-6) Stop: 09/19/17 23:59 - Brief post op/procedure progress note Date of procedure: 09/19/17 Pre-op diagnosis: right upper extremity hematoma Post-op diagnosis: same Procedure: Right upper extremity hematoma evacuation, drain placement Anesthesia: GETA Findings: Right arm and forearm hematoma, no graft exposure Surgeon: ISMA STEVEN Mobile Tester: ERICA JO Estimated blood loss: 50-100ml Pathology: none Condition: stable - Disposition Condition at discharge: Good Disposition: DC-01 TO HOME OR SELFCARE Short Stay Discharge Plan Diet: renal Wound: drain care as instructed Special Instructions: no heavy lifting Follow up with: PRIMARY CARE, [Primary Care Provider] - 7 Days ISMA STEVEN DO [Staff Physician] - 7 Days Prescriptions: HYDROcodone/APAP 7.5-325 [[place] 7.5/325] 1 each PO Q6HR PRN #30 tablet PRN Reason: Pain
[2017-09-19] MEDS ORDERED: HEPARIN 10,000 UNITS/10 ML IV ONE (15:50)
--- NOTE | 2017-09-19 16:18 | Post Anesthesia Evaluation ---
- Post Anesthesia Evaluation Patient Participated: Yes Airway Patent: Yes Stable Respiratory Function: Yes Nausea/Vomiting: No Temp > 96.8F: Yes Pain Manageable: Yes Adequeate Hydration: Yes Anesthesia Complications: No Block Receding Appropriately: No Patient on Ventilator: No
[2017-09-19] MEDS ORDERED: NORCO 7.5/325 PO ONE (16:27)
[2017-09-19] MEDS ORDERED: HEPARIN IV ONE (18:00)
[2017-09-19 18:51] VITALS: BP 115/61
== END 2017-09-19 17:53 | disposition home or self-care (01) ==
LOC: OR 10:56
PROVIDERS: ATTEND Radiology Diagnostic Radiology
DX: I97.638 Postprocedural hematoma of a circulatory system organ or structure following other circulatory system procedure (principal); I12.0 Hypertensive chronic kidney disease with stage 5 chronic kidney disease or end stage renal disease; N18.6 End stage renal disease; Z87.891 Personal history of nicotine dependence; Z99.81 Dependence on supplemental oxygen; Z99.2 Dependence on renal dialysis; Y83.2 Surgical operation with anastomosis, bypass or graft as the cause of abnormal reaction of the patient, or of later complication, without mention of misadventure at the time of the procedure
CPT/HCPCS: 10140; 36415; 80048; 85025; 87075; 87076; 87116; 87186; J1644; J2270; J7030; J7040; J2704; J2720